=== PATIENT | male | born 1965 | race Caucasian/White ===

== ENCOUNTER 2018-10-14 20:07 | Emergency (ER) | payer SELFPAY ==
[~2018-10-14] VITALS: Ht 162.6 cm; Wt 77.0 kg
[2018-10-14 20:11] VITALS: BP 114/71
== END 2018-10-14 20:30 | disposition left against medical advice (07) ==
LOC: ER 20:07
DX: F10.10 Alcohol abuse, uncomplicated (principal); Z53.21 Procedure and treatment not carried out due to patient leaving prior to being seen by health care provider; Y90.9 Presence of alcohol in blood, level not specified